=== PATIENT | female | born 1940 | race Caucasian/White ===

== ENCOUNTER → 2017-04-03 | Outpatient (CLI) | payer MEDICARE, BC ==
[~2017-04-03] MED LIST: ADULT LOW DOSE81 MG PO; ALLERGY RELIEF25 M2 PO; ASPIRIN325 PO; BENTYL 10 MG CA10 M1 PO; BENTYL10 MG PO; BLINK TEARS; BUMETANIDE2 M1 PO; BUMEX2 MG PO; CALCIUM500 MG PO; CENTRUM SILVER1 EAC4 PO; CIPROFLOXACIN500 M1; CIPROFLOXACIN500 M1 PO; CO Q-1030 MG PO; COLACE100 MG PO; COMBIVENT INH; COMBIVENT RESPIM4 GM INH; COZAAR 50 MG TA50 M1 PO; COZAAR 50 MG TA50 M2 PO; DIOVAN160 MG PO; DOCU SOFT100 MG PO; DOXYCYCLINE 10100 MG PO; DUONEB 2.5-0.5 M3 ML INH; FIBER CAPS PO; FIBER TABS625 MG PO; FISHOIL PO; FLAGYL500 MG; FLAGYL500 MG PO; FLAX SEED OIL1000 MG PO; FOLIC ACID PO; FOLIC ACID1 MG PO; FUROSEMIDE 20 M20 M1 PO; FUROSEMIDE 40 M40 M1 PO; GAS RELIEF80 MG PO; HYDROCODON-ACE1 EAC7 PO; HYDROXYCHLOROQ200 M1 PO; HYDROXYZINE HCL10 M1 PO; HYDROXYZINE HCL10 M2 PO; HYDROXYZINE HCL25 M1 PO; HYPOTEARS EYE D15 ML OPHTHALMIC; L-LYSINE600 MG PO; METAMUCIL PAC1 UDPK1 PO; METHOTREXATE 22.5 MG PO; MILK OF MA2400 MG/10 PO; MOBIC15 MG PO; MOM PO; MULTI VITAMIN1 EACH PO; MULTIPLE VITAM1 EAC3 PO; MUPIROCIN22 GM TOP; NASONEX17 GM; NASONEX17 GM NASAL; NORCO 5-325 TA1 EAC1 PO; NORCO 5-325 TA1 EACH PO; OMEGA 3-6-9 CO1 EACH PO; OXYCODONE HCL5 MG PO; PEPCID40 MG PO; PERCOCET 7.5-31 EACH PO; PERCOCET PO; POTASSIUM20 MEQ/15 PO; PREDNISONE 20 M20 MG PO; SYMBICORT160 MCG/4. INH; TAMIFLU75 MG PO; TESSALON PERLE100 MG PO; VIACTIV SOFT C1 EACH PO; VICODIN PO; VITAMIN B PO; VITAMIN B-12500 MCG PO; VITAMIN D2000 UNIT PO; VITAMIN E400 UNIT PO; XARELTO10 MG PO
== END ==
LOC: M.ULTRA 09:25
DX: N95.0 Postmenopausal bleeding (principal); K57.30 Diverticulosis of large intestine without perforation or abscess without bleeding

== ENCOUNTER → 2017-04-24 | Outpatient (CLI) | payer MEDICARE, BC | LOC: M.MRI 12:07 | DX: M51.27 Other intervertebral disc displacement, lumbosacral region (principal); M54.16 Radiculopathy, lumbar region; M41.86 Other forms of scoliosis, lumbar region; M51.25 Other intervertebral disc displacement, thoracolumbar region; M47.896 Other spondylosis, lumbar region; M43.17 Spondylolisthesis, lumbosacral region; K57.30 Diverticulosis of large intestine without perforation or abscess without bleeding ==

== ENCOUNTER → 2018-04-22 | Outpatient (CLI) | payer MEDICARE, BC | LOC: M.RAD 10:15 | DX: Z12.31 Encounter for screening mammogram for malignant neoplasm of breast (principal); M19.042 Primary osteoarthritis, left hand; M19.041 Primary osteoarthritis, right hand; G89.29 Other chronic pain ==

== ENCOUNTER → 2018-05-29 | Outpatient (CLI) | payer MEDICARE, BC | LOC: M.MRI 15:52 | DX: F03.90 Unspecified dementia, unspecified severity, without behavioral disturbance, psychotic disturbance, mood disturbance, and anxiety (principal); I67.82 Cerebral ischemia; J43.9 Emphysema, unspecified; I10 Essential (primary) hypertension; M19.041 Primary osteoarthritis, right hand; M19.042 Primary osteoarthritis, left hand; E78.5 Hyperlipidemia, unspecified; Z88.8 Allergy status to other drugs, medicaments and biological substances; Z88.1 Allergy status to other antibiotic agents; Z88.2 Allergy status to sulfonamides ==

== ENCOUNTER → 2018-06-12 | Outpatient (CLI) | payer MEDICARE, BC | LOC: M.RAD 14:24 | DX: R05 Cough (principal); Z88.8 Allergy status to other drugs, medicaments and biological substances; Z88.2 Allergy status to sulfonamides ==

== ENCOUNTER 2018-08-11 11:48 | Emergency (ER) | payer OTHER, MEDICARE, BC ==
[~2018-08-11] VITALS: Ht 165.1 cm; Wt 113.4 kg
[2018-08-11 14:06] VITALS: BP 133/64
== END 2018-08-11 14:07 | disposition home or self-care (01) ==
LOC: M.ERS 11:48
DX: S16.1XXA Strain of muscle, fascia and tendon at neck level, initial encounter (principal); S00.83XA Contusion of other part of head, initial encounter; R51 Headache; I10 Essential (primary) hypertension; G47.30 Sleep apnea, unspecified; J44.9 Chronic obstructive pulmonary disease, unspecified; G62.9 Polyneuropathy, unspecified; Z88.1 Allergy status to other antibiotic agents; Z88.8 Allergy status to other drugs, medicaments and biological substances; Z88.2 Allergy status to sulfonamides; W18.39XA Other fall on same level, initial encounter; Y92.89 Other specified places as the place of occurrence of the external cause; Y93.89 Activity, other specified; Y99.8 Other external cause status

== ENCOUNTER → 2019-03-17 | Outpatient (CLI) | payer MEDICARE, BC | LOC: M.RAD 10:51 → M.MRI 11:30 | DX: R90.82 White matter disease, unspecified (principal); N91.2 Amenorrhea, unspecified; K58.0 Irritable bowel syndrome with diarrhea; G47.33 Obstructive sleep apnea (adult) (pediatric); J43.9 Emphysema, unspecified; I10 Essential (primary) hypertension; M19.041 Primary osteoarthritis, right hand; M19.042 Primary osteoarthritis, left hand; Z78.0 Asymptomatic menopausal state ==

== ENCOUNTER 2019-04-09 10:29 | Emergency (ER) | payer MEDICARE, BC ==
[~2019-04-09] VITALS: Ht 152.4 cm; Wt 68.9 kg
[2019-04-09 11:26] LABS: ABSOLUTE MONOCYTES 0.5 thou/uL (0.0-1.2); BASOPHILS 0.5 %; EOSINOPHILS 0.5 %; HEMATOCRIT 29.8 % (37.0-47.0); HEMOGLOBIN 10.3 gm/dL (12.0-15.0); MCH 30.6 pg (26.0-34.0); MCHC 34.5 g/dL (28.0-37.0); MCV 88.8 fL (80.0-100.0); MONOCYTES 6.1 %; MPV 7.8 fl. (7.2-11.1); NUCLEATED RBCS 0 /100WBC; PLATELET COUNT* 142 thou/uL (150-400); POLYS 79.9 %; RBC 3.35 mil/uL (4.20-5.00); RDW-CV 14.6 % (10.5-14.5); WBC 7.5 thou/uL (4.0-11.0)
[2019-04-09 11:45] LABS: CALCIUM 7.8 mg/dL (8.5-10.1); POTASSIUM 3.9 mmol/L (3.5-5.1)
[2019-04-09 11:49] LABS: ALBUMIN 3.5 g/dL (3.4-5.0); TOTAL BILIRUBIN 1.5 mg/dL (<0.1-1.0); TOTAL PROTEIN 6.7 g/dL (6.4-8.2)
[2019-04-09 12:31] LABS: URINE BILIRUBIN NEGATIVE (Negative); URINE BLOOD NEGATIVE (Negative); URINE CLARITY CLEAR; URINE COLOR YELLOW; URINE GLUCOSE-RANDOM NEGATIVE (Negative); URINE KETONES NEGATIVE (Negative); URINE LEUKOCYTES-REFLEX 1+ (Negative); URINE NITRITE-REFLEX NEGATIVE (Negative); URINE PROTEIN TRACE (Negative); URINE SPECIFIC GRAVITY 1.025 (1.005-1.030); URINE UROBILINOGEN 0.2 E.U./dl (0.2-1.0)
[2019-04-09] MEDS ORDERED: BENTYL 10 MG CA10 MG PO (12:37)
[2019-04-09 12:47] LABS: SQUAMOUS 0-3 Few /LPF (0-3); URINE RBC None Seen /HPF (0-2); URINE WBC-REFLEX 6-15 Few /HPF (0-5); WBC CLUMPS Few (None Seen)
[2019-04-09 12:48] LABS: BACTERIA-REFLEX None Seen /HPF (None Seen); HYALINE CASTS 0-3 Few /LPF (None Seen); MUCUS >6 Heavy strn/LPF (None Seen); RENAL EPITHELIAL CELLS 0-3 Few /LPF (None Seen)
[2019-04-09 12:49] LABS: CRYSTALS None Seen /LPF (None Seen)
[2019-04-09 12:53] VITALS: BP 108/42
== END 2019-04-09 12:57 | disposition home or self-care (01) ==
LOC: M.ERS 10:29
PROVIDERS: Personal Emergency Response Attendant
DX: K59.00 Constipation, unspecified (principal); I10 Essential (primary) hypertension; G47.30 Sleep apnea, unspecified; J44.9 Chronic obstructive pulmonary disease, unspecified; G62.9 Polyneuropathy, unspecified; Z88.1 Allergy status to other antibiotic agents; Z88.2 Allergy status to sulfonamides; Z88.8 Allergy status to other drugs, medicaments and biological substances; Z98.51 Tubal ligation status

== ENCOUNTER → 2019-04-23 | Outpatient (CLI) | payer MEDICARE, BC ==
[~2019-04-23] MED LIST changes: +BENTYL 10 MG CA10 MG PO
== END ==
LOC: M.RAD 09:46
DX: Z12.31 Encounter for screening mammogram for malignant neoplasm of breast (principal); R92.1 Mammographic calcification found on diagnostic imaging of breast

== ENCOUNTER → 2019-05-10 | Outpatient (CLI) | payer MEDICARE, BC | LOC: M.CT 14:23 | DX: I05.9 Rheumatic mitral valve disease, unspecified (principal); I25.10 Atherosclerotic heart disease of native coronary artery without angina pectoris; K58.0 Irritable bowel syndrome with diarrhea; G47.33 Obstructive sleep apnea (adult) (pediatric); J43.9 Emphysema, unspecified; I10 Essential (primary) hypertension ==

== ENCOUNTER → 2019-05-11 | Outpatient (CLI) | payer MEDICARE, BC ==
[~2019-05-11] MED LIST changes: +MACROBID 100 M100 M1 PO
== END ==
LOC: M.RAD 10:50
DX: R13.19 Other dysphagia (principal); K58.0 Irritable bowel syndrome with diarrhea; G47.33 Obstructive sleep apnea (adult) (pediatric); J43.9 Emphysema, unspecified; I10 Essential (primary) hypertension

== ENCOUNTER → 2019-05-14 | Outpatient (CLI) | payer MEDICARE, BC ==
[~2019-05-14] MED LIST changes: -MACROBID 100 M100 M1 PO
== END ==
LOC: M.CT 07:19
DX: J43.9 Emphysema, unspecified (principal); K58.0 Irritable bowel syndrome with diarrhea; I10 Essential (primary) hypertension; G47.33 Obstructive sleep apnea (adult) (pediatric); I25.10 Atherosclerotic heart disease of native coronary artery without angina pectoris; I31.3 Pericardial effusion (noninflammatory); M47.814 Spondylosis without myelopathy or radiculopathy, thoracic region; Z98.890 Other specified postprocedural states

== ENCOUNTER 2019-05-28 19:57 | Emergency (ER) | payer MEDICARE, BC ==
[~2019-05-28] VITALS: Ht 149.9 cm; Wt 95.3 kg
[2019-05-28 20:17] LABS: URINE BILIRUBIN NEGATIVE (Negative); URINE BLOOD NEGATIVE (Negative); URINE COLOR YELLOW; URINE GLUCOSE-RANDOM NEGATIVE (Negative); URINE KETONES NEGATIVE (Negative); URINE LEUKOCYTES-REFLEX 1+ (Negative); URINE NITRITE-REFLEX NEGATIVE (Negative); URINE PROTEIN TRACE (Negative); URINE SPECIFIC GRAVITY >= 1.030 (1.005-1.030); URINE UROBILINOGEN 0.2 E.U./dl (0.2-1.0)
[2019-05-28 20:19] LABS: URINE CLARITY HAZY
[2019-05-28 20:25] LABS: SQUAMOUS 4-10 Moderate /LPF (0-3)
[2019-05-28 20:26] LABS: URINE WBC-REFLEX 6-15 Few /HPF (0-5)
[2019-05-28 20:27] LABS: BACTERIA-REFLEX None Seen /HPF (None Seen); CASTS None Seen /LPF (None Seen); CRYSTALS None Seen /LPF (None Seen); URINE RBC None Seen /HPF (0-2)
[2019-05-28 20:33] LABS: ABSOLUTE LYMPHOCYTES 1.8 thou/uL (0.8-5.3); ABSOLUTE MONOCYTES 0.4 thou/uL (0.0-1.2); ABSOLUTE NEUTROPHILS 3.2 thou/uL (1.6-8.1); BASOPHILS 0.8 %; HEMATOCRIT 33.2 % (37.0-47.0); HEMOGLOBIN 11.2 gm/dL (12.0-15.0); LYMPHOCYTES 32.8 %; MCH 30.1 pg (26.0-34.0); MCHC 33.8 g/dL (28.0-37.0); MCV 89.1 fL (80.0-100.0); MONOCYTES 7.7 %; MPV 7.7 fl. (7.2-11.1); NUCLEATED RBCS 0 /100WBC; PLATELET COUNT* 168 thou/uL (150-400); POLYS 58.7 %; RBC 3.73 mil/uL (4.20-5.00); RDW-CV 15.6 % (10.5-14.5); WBC 5.4 thou/uL (4.0-11.0)
[2019-05-28 20:39] LABS: CALCIUM 8.8 mg/dL (8.5-10.1); POTASSIUM 3.9 mmol/L (3.5-5.1)
[2019-05-28 20:43] LABS: TOTAL BILIRUBIN 0.7 mg/dL (<0.1-1.0); TOTAL PROTEIN 7.3 g/dL (6.4-8.2)
[2019-05-28] MEDS ORDERED: MACROBID 100 M100 M1 PO (22:47)
[2019-05-28 22:58] VITALS: BP 125/70
--- NOTE | 2019-05-29 13:00 | EKG ---
[place] [address] ELECTROCARDIOGRAM REPORT Name: NAHUMYANGMARIIA Norma Room: [facility]#: [id number] Admission: 05/28/19 Attend Phys: Discharge: 05/28/19 Date of : 40 Date of Service: 05/28/192013 Report #: [id number] THIS REPORT FOR: //name// [facility] ED Test Date: 2019-05-28 Test Time: 20:14:07 Pat Name: MERARI SIDHU Department: Room: Gender: F Administrative Support Manager: PEREZ : 1940 Requested By: Antonia Sterling Order Number: [id number] MD: Richard Vaughn Measurements Intervals [place] Rate: 71 P: 74 [place]: 185 QRS: 47 QRSD: 129 T: 6 QT: 435 QTc: 473 Interpretive Statements Sinus rhythm Compared to ECG 03/23/2014 13:06:09 Atrial premature complex(es) no longer present Myocardial infarct finding no longer present Ventricular premature complex(es) no longer present Electronically Signed On 05-29-2019 12:59:11 CDT by Richard Vaughn [email or web address] <ELECTRONICALLY SIGNED> By: Richard Vaughn MD, FACC 05/29/19 1259 13 13 Richard Vaughn MD, [facility] /EPI
== END 2019-05-28 23:01 | disposition home or self-care (01) ==
LOC: M.ERS 19:57
PROVIDERS: Emergency Medicine
DX: N39.0 Urinary tract infection, site not specified (principal); I10 Essential (primary) hypertension; J44.9 Chronic obstructive pulmonary disease, unspecified; G47.30 Sleep apnea, unspecified; G62.9 Polyneuropathy, unspecified; Z88.1 Allergy status to other antibiotic agents; Z88.2 Allergy status to sulfonamides; Z88.8 Allergy status to other drugs, medicaments and biological substances; Z98.51 Tubal ligation status

== ENCOUNTER 2019-08-10 09:43 | Emergency (ER) | payer MEDICARE, BC ==
[~2019-08-10] VITALS: Ht 162.6 cm; Wt 67.9 kg
[~2019-08-10 09:43] MED LIST changes: +MACROBID 100 M100 M1 PO
[2019-08-10 11:57] VITALS: BP 125/87
== END 2019-08-10 11:58 | disposition home or self-care (01) ==
LOC: M.ERS 09:43
DX: S01.81XA Laceration without foreign body of other part of head, initial encounter (principal); I10 Essential (primary) hypertension; J44.9 Chronic obstructive pulmonary disease, unspecified; G62.9 Polyneuropathy, unspecified; G47.30 Sleep apnea, unspecified; Z98.51 Tubal ligation status; W01.0XXA Fall on same level from slipping, tripping and stumbling without subsequent striking against object, initial encounter; Y93.89 Activity, other specified; Y92.89 Other specified places as the place of occurrence of the external cause; Y99.8 Other external cause status; Z79.899 Other long term (current) drug therapy; Z88.1 Allergy status to other antibiotic agents; Z88.2 Allergy status to sulfonamides

== ENCOUNTER → 2019-10-06 | Outpatient (CLI) | payer MEDICARE, BC | LOC: M.CT 12:59 | PROVIDERS: ATTEND Registered Nurse Diabetes Educator | DX: K80.20 Calculus of gallbladder without cholecystitis without obstruction (principal); K57.30 Diverticulosis of large intestine without perforation or abscess without bleeding ==

== ENCOUNTER → 2020-01-07 | Outpatient (CLI) | payer MEDICARE, BC | LOC: M.ULTRA 07:39 | PROVIDERS: ATTEND Internal Medicine | DX: K80.20 Calculus of gallbladder without cholecystitis without obstruction (principal); K76.89 Other specified diseases of liver ==

== ENCOUNTER → 2020-07-05 | Outpatient (CLI) | payer MEDICARE, BC | LOC: M.RAD 10:22 | PROVIDERS: ATTEND Internal Medicine | DX: Z12.31 Encounter for screening mammogram for malignant neoplasm of breast (principal) ==

== ENCOUNTER 2020-09-08 17:18 | Inpatient (IN) | payer MEDICARE, BC ==
[~2020-09-08] VITALS: Ht 152.4 cm; Wt 62.1 kg
[2020-09-08 17:44] VITALS: BP 139/65
[2020-09-08 19:10] LABS: URINE BILIRUBIN NEGATIVE (Negative); URINE BLOOD NEGATIVE (Negative); URINE CLARITY CLEAR; URINE COLOR YELLOW; URINE GLUCOSE-RANDOM NEGATIVE (Negative); URINE KETONES NEGATIVE (Negative); URINE LEUKOCYTES-REFLEX TRACE (Negative); URINE NITRITE-REFLEX NEGATIVE (Negative); URINE PROTEIN NEGATIVE (Negative); URINE SPECIFIC GRAVITY <= 1.005 (1.005-1.030); URINE UROBILINOGEN 0.2 E.U./dl (0.2-1.0)
[2020-09-08 19:31] LABS: BACTERIA-REFLEX >30 Many /HPF (None Seen); CASTS None Seen /LPF (None Seen); CRYSTALS None Seen /LPF (None Seen); SQUAMOUS 0-3 Few /LPF (0-3); URINE RBC None Seen /HPF (0-2); URINE WBC-REFLEX 6-15 Few /HPF (0-5)
[2020-09-08 21:23] LABS: ABSOLUTE BASOPHILS 0.1 thou/uL (0.0-0.2); ABSOLUTE EOSINOPHILS 0.1 thou/uL (0.0-0.7); ABSOLUTE LYMPHOCYTES 1.4 thou/uL (0.8-5.3); ABSOLUTE MONOCYTES 0.2 thou/uL (0.0-1.2); ABSOLUTE NEUTROPHILS 2.6 thou/uL (1.6-8.1); BASOPHILS 1.2 %; EOSINOPHILS 2.3 %; HEMATOCRIT 27.2 % (37.0-47.0); HEMOGLOBIN 9.6 gm/dL (12.0-15.0); LYMPHOCYTES 32.1 %; MCH 32.7 pg (26.0-34.0); MCHC 35.2 g/dL (28.0-37.0); MCV 92.8 fL (80.0-100.0); MONOCYTES 5.5 %; MPV 7.4 fl. (7.2-11.1); NUCLEATED RBCS 0 /100WBC; PLATELET COUNT* 183 thou/uL (150-400); POLYS 58.9 %; RBC 2.93 mil/uL (4.20-5.00); RDW-CV 20.7 % (10.5-14.5); WBC 4.4 thou/uL (4.0-11.0)
[2020-09-08 21:33] LABS: CALCIUM 8.5 mg/dL (8.5-10.1); CREATININE 0.9 mg/dL (0.6-1.3)
[2020-09-08 21:43] LABS: ALBUMIN 3.9 g/dL (3.4-5.0); TOTAL BILIRUBIN 1.3 mg/dL (<0.1-1.0); TOTAL PROTEIN 6.9 g/dL (6.4-8.2)
[2020-09-08 21:45] LABS: ANISOCYTOSIS 1+; PLATELET ESTIMATE ADEQUATE
[2020-09-08 21:46] LABS: MICROCYTES 1+
[2020-09-09 00:03] VITALS: BP 144/70
[2020-09-09 00:27] VITALS: BP 125/71
[2020-09-09] MEDS ORDERED: HYDROXYCHLOROQ200 M1 PO (01:35)
[2020-09-09 08:00] VITALS: BP 132/89
[2020-09-09 16:00] VITALS: BP 146/70
[2020-09-09 20:00] VITALS: BP 107/54; BP 149/70
[2020-09-10 06:30] LABS: HEMATOCRIT 25.8 % (37.0-47.0); HEMOGLOBIN 9.2 gm/dL (12.0-15.0); MCH 33.2 pg (26.0-34.0); MCHC 35.6 g/dL (28.0-37.0); MCV 93.1 fL (80.0-100.0); MPV 7.7 fl. (7.2-11.1); RBC 2.77 mil/uL (4.20-5.00); RDW-CV 20.4 % (10.5-14.5); WBC 4.2 thou/uL (4.0-11.0)
[2020-09-10 06:43] LABS: ALBUMIN 3.6 g/dL (3.4-5.0); CALCIUM 8.1 mg/dL (8.5-10.1); CREATININE 0.9 mg/dL (0.6-1.3); MAGNESIUM 1.6 mg/dL (1.8-2.4); POTASSIUM 3.2 mmol/L (3.5-5.1); TOTAL PROTEIN 6.7 g/dL (6.4-8.2)
[2020-09-10 07:55] VITALS: BP 125/51
[2020-09-10] MEDS ORDERED: MACROBID 100 M100 MG PO (09:28)
[2020-09-10 10:40] VITALS: BP 125/51
[2020-09-10 13:42] VITALS: BP 125/51
[2020-09-10 14:43] VITALS: BP 125/51
== END 2020-09-10 14:15 | disposition home or self-care (01) | DRG 689 ==
LOC: M.ERS 17:18 → M.TBA-ER 21:39 → M.3W 09-09 00:02
PROVIDERS: Internal Medicine; Physician Assistant; ADMIT Internal Medicine; ATTEND Internal Medicine
DX: N39.0 Urinary tract infection, site not specified (principal); G92 Toxic encephalopathy; I31.3 Pericardial effusion (noninflammatory); I10 Essential (primary) hypertension; J44.9 Chronic obstructive pulmonary disease, unspecified; D64.9 Anemia, unspecified; F03.90 Unspecified dementia, unspecified severity, without behavioral disturbance, psychotic disturbance, mood disturbance, and anxiety; R01.1 Cardiac murmur, unspecified; G47.33 Obstructive sleep apnea (adult) (pediatric); G62.9 Polyneuropathy, unspecified; Z20.822 Contact with and (suspected) exposure to COVID-19; Z88.1 Allergy status to other antibiotic agents; Z88.2 Allergy status to sulfonamides; Z88.8 Allergy status to other drugs, medicaments and biological substances; Z79.899 Other long term (current) drug therapy

== ENCOUNTER 2021-01-09 13:59 | Emergency (ER) | payer MEDICARE, BC ==
[~2021-01-09] VITALS: Ht 152.4 cm; Wt 49.9 kg
[~2021-01-09 13:59] MED LIST changes: +MACROBID 100 M100 MG PO
[2021-01-09 16:25] LABS: ABSOLUTE EOSINOPHILS 0.1 thou/uL (0.0-0.7); ABSOLUTE LYMPHOCYTES 0.8 thou/uL (0.8-5.3); ABSOLUTE NEUTROPHILS 2.9 thou/uL (1.6-8.1); BASOPHILS 0.3 %; EOSINOPHILS 1.4 %; HEMATOCRIT 29.7 % (37.0-47.0); HEMOGLOBIN 10.2 gm/dL (12.0-15.0); LYMPHOCYTES 21.7 %; MCH 31.7 pg (26.0-34.0); MCHC 34.5 g/dL (28.0-37.0); MONOCYTES 0.6 %; NUCLEATED RBCS 0 /100WBC; PLATELET COUNT* 67 thou/uL (150-400); RBC 3.22 mil/uL (4.20-5.00); RDW-CV 13.2 % (10.5-14.5); WBC 3.9 thou/uL (4.0-11.0)
[2021-01-09 16:35] LABS: CALCIUM 8.5 mg/dL (8.5-10.1); CREATININE 1.1 mg/dL (0.6-1.3); POTASSIUM 3.7 mmol/L (3.5-5.1)
[2021-01-09 16:39] LABS: ALBUMIN 3.8 g/dL (3.4-5.0); TOTAL BILIRUBIN 1.3 mg/dL (<0.1-1.0); TOTAL PROTEIN 7.2 g/dL (6.4-8.2)
[2021-01-09 17:55] LABS: URINE BILIRUBIN NEGATIVE (Negative); URINE BLOOD NEGATIVE (Negative); URINE CLARITY CLEAR; URINE COLOR YELLOW; URINE GLUCOSE-RANDOM NEGATIVE (Negative); URINE KETONES TRACE (Negative); URINE LEUKOCYTES-REFLEX NEGATIVE (Negative); URINE NITRITE-REFLEX NEGATIVE (Negative); URINE PROTEIN TRACE (Negative); URINE SPECIFIC GRAVITY >= 1.030 (1.005-1.030); URINE UROBILINOGEN 0.2 E.U./dl (0.2-1.0)
[2021-01-09] MEDS ORDERED: MAGIC MOUTHWASH SWISH&SPIT (18:26)
[2021-01-09 18:34] VITALS: BP 126/60
--- NOTE | 2021-01-10 09:35 | EKG ---
[place] [address] ELECTROCARDIOGRAM REPORT Name: MERARI SIDHU Room: [facility]#: [id number] Admission: 01/09/21 Attend Phys: Discharge: 01/09/21 Date of : 40 Date of Service: 01/09/21 1723 Report #: [id number] THIS REPORT FOR: //name// [facility] ED Test Date: 2021-01-09 Test Time: 17:23:23 Pat Name: MERARI SIDHU Department: Room: Gender: F Gutter Installer: DSChelsea : 1940 Requested By: Celeste Etienne Order Number: [id number] MD: Mick Wahl Measurements Intervals [place] Rate: 78 P: [place]: QRS: 26 QRSD: 137 T: 29 QT: 437 QTc: 498 Interpretive Statements sinus rhythm with first degree AV block Right bundle branch block Compared to ECG 05/28/2019 20:14:07 Right bundle-branch block now present Electronically Signed On 01-10-2021 9:35:24 CLAIMS REPRESENTATIVE by Mick Wahl [email or web address] <ELECTRONICALLY SIGNED> By: Mick Wahl MD, FACC 01/10/21 0935 1723 1723 Mick Wahl MD, [facility] /EPI
== END 2021-01-09 18:35 | disposition home or self-care (01) ==
LOC: M.ERS 13:59
PROVIDERS: Nurse Practitioner Family
DX: K12.1 Other forms of stomatitis (principal); K52.9 Noninfective gastroenteritis and colitis, unspecified; G47.30 Sleep apnea, unspecified; J44.9 Chronic obstructive pulmonary disease, unspecified; Z79.899 Other long term (current) drug therapy; Z98.51 Tubal ligation status; Z88.2 Allergy status to sulfonamides; Z88.8 Allergy status to other drugs, medicaments and biological substances

== ENCOUNTER 2021-02-27 09:35 | Emergency (ER) | payer MEDICARE, BC ==
[~2021-02-27] VITALS: Ht 152.4 cm; Wt 56.7 kg
[~2021-02-27 09:35] MED LIST changes: +MAGIC MOUTHWASH SWISH&SPIT
[2021-02-27] MEDS ORDERED: ARICEPT10 M1 PO (10:34)
[2021-02-27] MEDS ORDERED: NAMENDA 10 MG T10 MG PO (10:34)
[2021-02-27] MEDS ORDERED: DICYCLOMINE HCL10 MG PO (10:34)
[2021-02-27 13:45] VITALS: BP 150/63
[2021-02-27 13:46] LABS: ABSOLUTE BASOPHILS 0.1 thou/uL (0.0-0.2); ABSOLUTE MONOCYTES 0.3 thou/uL (0.0-1.2); ABSOLUTE NEUTROPHILS 5.5 thou/uL (1.6-8.1); EOSINOPHILS 0.3 %; HEMATOCRIT 36.5 % (37.0-47.0); HEMOGLOBIN 12.5 gm/dL (12.0-15.0); LYMPHOCYTES 14.8 %; MCHC 34.4 g/dL (28.0-37.0); MCV 90.1 fL (80.0-100.0); MONOCYTES 3.9 %; MPV 7.7 fl. (7.2-11.1); NUCLEATED RBCS 0 /100WBC; PLATELET COUNT* 162 thou/uL (150-400); RBC 4.05 mil/uL (4.20-5.00); RDW-CV 16.5 % (10.5-14.5); WBC 6.9 thou/uL (4.0-11.0)
[2021-02-27 13:53] LABS: CREATININE 0.8 mg/dL (0.6-1.3)
[2021-02-27 13:56] LABS: POTASSIUM 2.9 mmol/L (3.5-5.1)
[2021-02-27 13:58] LABS: ALBUMIN 3.8 g/dL (3.4-5.0); TOTAL BILIRUBIN 1.7 mg/dL (<0.1-1.0); TOTAL PROTEIN 7.1 g/dL (6.4-8.2)
== END 2021-02-27 13:46 | disposition home or self-care (01) ==
LOC: M.ERS 09:35
PROVIDERS: Family Medicine
DX: R10.13 Epigastric pain (principal); I10 Essential (primary) hypertension; J44.9 Chronic obstructive pulmonary disease, unspecified; F03.90 Unspecified dementia, unspecified severity, without behavioral disturbance, psychotic disturbance, mood disturbance, and anxiety; G62.9 Polyneuropathy, unspecified; Z98.890 Other specified postprocedural states; Z98.51 Tubal ligation status; Z79.899 Other long term (current) drug therapy; Z88.1 Allergy status to other antibiotic agents; Z88.8 Allergy status to other drugs, medicaments and biological substances; Z88.2 Allergy status to sulfonamides